=== PATIENT | female | born 1975 | race American Indian/Alaskan Native ===

== ENCOUNTER 2019-08-29 10:58 | Emergency (ER) | payer OTHER ==
[2019-08-29] MEDS ORDERED: IBUPROFEN 600 MG TAB PO ONE (11:27)
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
[2019-08-29 16:48] LABS: BUN/Creatinine Ratio 14; Blood Urea Nitrogen 10 mg/dL (7-17); Hemolysis Index 9
[2019-08-29] MEDS ORDERED: HYDROcodone/ACETAMINOPHEN 5-325 MG TAB PO ONE (17:17)
[2019-08-29] MEDS ORDERED: SODIUM CHLORIDE 0.9% 1000 ML 1,000 ML IV ONE (18:17)
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
[2019-08-29 23:29] VITALS: BP 123/79
== END 2019-08-29 20:00 | disposition home or self-care (01) ==
LOC: ED 10:58
DX: M25.562 Pain in left knee (principal); M25.511 Pain in right shoulder; Z79.899 Other long term (current) drug therapy; V89.2XXA Person injured in unspecified motor-vehicle accident, traffic, initial encounter; Y93.89 Activity, other specified; Y92.488 Other paved roadways as the place of occurrence of the external cause; Y99.8 Other external cause status
CPT/HCPCS: 36415; 71111; 71260; 73030; 73560; 74177; 80048; 99284; J7030; Q9967